=== PATIENT | male | born 1965 | race African-American/Black ===

== ENCOUNTER 2022-12-15 06:10 | Inpatient (IN) | payer OTHER ==
[~2022-12-15] VITALS: Ht 182.9 cm; Wt 106.6 kg
[2022-12-15 07:19] LABS: PROTHROMBIN TIME 10.9 sec (9.6-11.0)
[2022-12-15 07:20] LABS: BASOPHILS % 0.2 % (0.0-2.0); EOSINOPHILS % 1.2 % (0.0-5.0); HEMATOCRIT. 42.6 % (42.0-52.0); HEMOGLOBIN. 14.5 g/dL (14.0-18.0); LYMPHOCYTES % 16.3 % (20.0-50.0); MEAN CORPUSCULAR HEMOGLOBIN 27.9 pg (28.0-32.0); MEAN CORPUSCULAR HGB CONC 33.9 g/dL (31.0-37.0); MEAN CORPUSCULAR VOLUME 82.1 fL (80.0-94.0); MEAN PLATELET VOLUME 7.4 fl (7.4-10.4); MONOCYTES % 6.8 % (2.0-8.0); NEUTROPHILS % 75.5 % (40.0-76.0); PLATELET 243 x1000/uL (130-400); RED BLOOD CELL COUNT 5.19 mill/uL (4.7-6.1); RED CELL DISTRIBUTION WIDTH 14.3 % (11.6-14.6); WHITE BLOOD COUNT 10.7 x1000/uL (4.5-11.0)
[2022-12-15] MEDS ORDERED: SODIUM CHLORIDE 0.9% 1,000 ML IV ONE (07:30)
[2022-12-15 07:45] LABS: CHLORIDE 102 mEq/L (98-107); INDEX HEMOLYSI 1 (1-3); INDEX ICTERIC 1 (1-4); INDEX LIPEMIC 1 (1-3); POTASSIUM 3.2 mEq/L (3.5-5.1); SODIUM 135 mEq/L (136-145)
[2022-12-15 07:56] LABS: ALANINE AMINOTRANSFERASE 33 IU/L (13-61); ASPARTATE AMINOTRANSFERASE 15 IU/L (15-37); BILIRUBIN TOTAL 0.8 mg/dL (0.1-1.0); CARBON DIOXIDE 25 mEq/L (21-32); CREATININE 1.1 mg/dL (0.6-1.3); GLUCOSE 131 mg/dL (70-105); PROTEIN TOTAL 8.2 g/dL (6.0-8.3); TROPONIN I HIGH SENSITIVITY 4 ng/L (<78); UREA NITROGEN BLOOD 18 mg/dL (7-21)
[2022-12-15 08:01] LABS: LACTIC ACID 3.4 mmol/L (0.4-2.0)
[2022-12-15] MEDS ORDERED: SODIUM CHLORIDE 0.9% 1000ML BAG (SEPSIS BOLUS) IV ONE (08:15)
[2022-12-15] MEDS ORDERED: PIPERACILLIN/TAZ 3.375G PREMIX 50 ML IV ONE (08:15)
[2022-12-15] MEDS ORDERED: VANCOMYCIN 1G PREMIX 200 ML IV ONE (08:15)
[2022-12-15] MEDS ORDERED: IOHEXOL-350 100 ML BOTTLE ONE (09:46)
[2022-12-15] MEDS ORDERED: ONDANSETRON HCL 4MG/2ML INJ IV ONE (10:45)
[2022-12-15 11:17] LABS: BG BASE EXCESS -3.9 mmol/L (-2.0-2.0); BG CARBOXYHEMOGLOBIN 0.8 % (0.5-1.5); BG DEOXYHEMOGLOBIN 15.3 % (0.0-5.0); BG FRACTION INSPIRED OXYGEN 36; BG HCO3 ACT 20.8 mmol/L (22.0-26.0); BG METHEMOGLOBIN 0.3 % (0.0-1.5); BG OXYGEN SATURATION 84.5 % (92.0-98.5); BG OXYHEMOGLOBIN 83.6 % (94.0-97.0); BG PCO2 37.3 mmHg (35.0-45.0); BG PH 7.365 (7.350-7.450); BG PO2 50.9 mmHg (75.0-100.0); BG SAMPLE SITE RIGHT BRACHIAL; BG TOTAL HEMOGLOBIN 15.2 g/dL (12.0-18.0); BG VENT MODE NASAL CANNULA
[2022-12-15 11:36] LABS: CLARITY URINE CLEAR (CLEAR); COLOR URINE YELLOW (YELLOW); GLUCOSE URINE 2+ (NEGATIVE); KETONES URINE NEGATIVE (NEGATIVE); LEUKOCYTE ESTERASE URINE NEGATIVE (NEGATIVE); NITRITE URINE NEGATIVE (NEGATIVE); OCCULT BLOOD URINE NEGATIVE (NEGATIVE); PH URINE 7.5 (4.5-8.0); PROTEIN URINE TRACE (NEGATIVE); SPECIFIC GRAVITY URINE 1.048 (1.005-1.030); UROBILINOGEN URINE 0.2 E.U./dL (0.2-1.0)
[2022-12-15 11:52] LABS: RBC URINE 0-2 /hpf (0-2); SQUAMOUS EPITHELIAL CELL URINE NONE SEEN /lpf (RARE/1+)
[2022-12-15 11:53] LABS: BACTERIA URINE NONE SEEN
[2022-12-15 11:55] LABS: WBC URINE 0-2 /hpf (0-2)
[2022-12-15 12:14] LABS: TROPONIN I HIGH SENSITIVITY 10 ng/L (<78)
[2022-12-15] MEDS ORDERED: ACETAMINOPHEN 325MG TABLET PO ONE (12:15)
[2022-12-15] MEDS ORDERED: ACETAMINOPHEN 325MG TABLET PO NR (15:47)
[2022-12-15] MEDS ORDERED: CLONIDINE 0.1MG TABLET PO PRN (17:15)
[2022-12-15] MEDS ORDERED: ACETAMINOPHEN 325MG TABLET PO PRN (17:15)
[2022-12-15] MEDS ORDERED: ONDANSETRON HCL 4MG/2ML INJ IV PRN (17:15)
[2022-12-15] MEDS ORDERED: SODIUM CHLORIDE 0.9% 1,000 ML IV SCH (17:30)
[2022-12-15] MEDS ORDERED: LEVOFLOXACIN 500MG PREMIX 100 ML IV SCH (18:00)
[2022-12-15] MEDS: PIPERACILLIN/TAZ 3.375G PREMIX 50 ML IV SCH (18:00)
[2022-12-15] MEDS: SODIUM CHLORIDE 0.9% 1,000 ML IV SCH ×2 (18:05→18:36)
[2022-12-15] MEDS: VANCOMYCIN 1G PREMIX 200 ML IV SCH ×2 (18:19→18:35)
[2022-12-15 20:00] VITALS: PULSE 106; RESP 24; O2SAT 95
[2022-12-15] MEDS: IPRATROPIUM/ALBUTEROL 0.5-3(2.5)MG/3ML NEB HHN SCH (20:00)
[2022-12-15] MEDS: ENOXAPARIN 30MG/0.3ML SYR SUBCUT SCH (22:35)
[2022-12-15] MEDS ORDERED: LORAZEPAM 2MG/ML CPJ IV NR (22:45)
[2022-12-16] VITALS (10 sets, daily range): BP systolic 95–137; BP diastolic 51–62; PULSE 82–97; RESP 18–22; TEMP 97–98.5; O2SAT 95–97
[2022-12-16 00:05] LABS: CREATINE KINASE MB FRACTION 10.5 ng/mL (0.5-3.6)
[2022-12-16] MEDS: PIPERACILLIN/TAZ 3.375G PREMIX 50 ML IV SCH (02:00)
[2022-12-16] MEDS: IPRATROPIUM/ALBUTEROL 0.5-3(2.5)MG/3ML NEB HHN SCH ×4 (04:45→16:35)
[2022-12-16 06:32] LABS: BASOPHILS % 0.1 % (0.0-2.0); EOSINOPHILS % 0.2 % (0.0-5.0); HEMATOCRIT. 40.6 % (42.0-52.0); HEMOGLOBIN. 13.5 g/dL (14.0-18.0); LYMPHOCYTES % 12.5 % (20.0-50.0); MEAN CORPUSCULAR HEMOGLOBIN 27.3 pg (28.0-32.0); MEAN CORPUSCULAR HGB CONC 33.3 g/dL (31.0-37.0); MEAN PLATELET VOLUME 7.4 fl (7.4-10.4); MONOCYTES % 6.6 % (2.0-8.0); NEUTROPHILS % 80.6 % (40.0-76.0); PLATELET 209 x1000/uL (130-400); RED BLOOD CELL COUNT 4.96 mill/uL (4.7-6.1); RED CELL DISTRIBUTION WIDTH 14.2 % (11.6-14.6); WHITE BLOOD COUNT 8.4 x1000/uL (4.5-11.0)
[2022-12-16 08:24] LABS: CREATINE KINASE MB FRACTION 8.7 ng/mL (0.5-3.6)
[2022-12-16 08:55] LABS: CHLORIDE 108 mEq/L (98-107); INDEX HEMOLYSI 1 (1-3); INDEX ICTERIC 1 (1-4); INDEX LIPEMIC 1 (1-3); POTASSIUM 3.9 mEq/L (3.5-5.1); SODIUM 139 mEq/L (136-145)
[2022-12-16 09:17] LABS: ALANINE AMINOTRANSFERASE 26 IU/L (13-61); ALBUMIN 3.1 g/dL (3.4-5.0); ASPARTATE AMINOTRANSFERASE 22 IU/L (15-37); CALCIUM 8.6 mg/dL (8.5-10.1); CREATININE 1.4 mg/dL (0.6-1.3); GLUCOSE 119 mg/dL (70-105); PHOSPHORUS 3.1 mg/dL (2.5-4.9); PROTEIN TOTAL 6.8 g/dL (6.0-8.3); UREA NITROGEN BLOOD 26 mg/dL (7-21)
[2022-12-16] MEDS: ENOXAPARIN 30MG/0.3ML SYR SUBCUT SCH (09:38)
[2022-12-16] MEDS ORDERED: POLY30DR OP (09:45)
[2022-12-16] MEDS ORDERED: DEXT 5%/0.45% NACL 500ML 500 ML IV ONE (11:45)
[2022-12-16] MEDS ORDERED: VANCOMYCIN 1G PREMIX 200 ML IV SCH (12:00)
[2022-12-16 12:21] LABS: CARBON DIOXIDE 21 mEq/L (21-32)
[2022-12-16] MEDS ORDERED: AZTREONAM 1 G in DEXTROSE 5% WATER 50 ML IV SCH (12:30)
[2022-12-16] MEDS: MIDODRINE HCL 5MG TABLET PO SCH ×2 (12:44→17:42)
[2022-12-16] MEDS: VANCOMYCIN 1G PREMIX 200 ML IV SCH (12:50)
[2022-12-16 13:56] LABS: LACTIC ACID 3.6 mmol/L (0.4-2.0)
[2022-12-16] MEDS ORDERED: LEVO-65 MT (15:43)
[2022-12-17] MEDS ORDERED: INFLUENZA VACCINE 05/PF 0.5 ML SYRINGE IM ONE (15:00)
[2022-12-17] MEDS ORDERED: PNEUMOCOCCAL 23-VAL P-SAC VAC 0.5 ML IM ONE (15:00)
== END 2022-12-16 18:45 | disposition home or self-care (01) | DRG 871 ==
LOC: ER 06:10 → 8WST 11:12 → EDBEDREQTM 19:49 → EDBEDREQSVC 19:49
PROVIDERS: ADMIT Internal Medicine Pulmonary Disease; ATTEND Internal Medicine Pulmonary Disease
DX: A41.9 Sepsis, unspecified organism (principal); G93.41 Metabolic encephalopathy; E87.20 Acidosis, unspecified; I12.9 Hypertensive chronic kidney disease with stage 1 through stage 4 chronic kidney disease, or unspecified chronic kidney disease; Z20.822 Contact with and (suspected) exposure to COVID-19; N18.9 Chronic kidney disease, unspecified; R09.02 Hypoxemia; Z88.1 Allergy status to other antibiotic agents; Z88.0 Allergy status to penicillin
CPT/HCPCS: 36415; 36600; 70551; 71045; 71275; 80053; 80320; 81003; 82375; 82550; 82553; 82805; 82962; 83605; 83735; 84100; 84145; 84484; 85025; 85379; 87420; 87426; 87804; 90686; 90732; 93005; 93306; 94640; 99291; C9803; J1650; J2060; J2405; J2543; J3370; J3490; J7030; J7060; Q9967; G0480